=== PATIENT | female | born 2000 | race African-American/Black ===

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

== ENCOUNTER 2020-04-12 14:47 | Emergency (ER) | payer SELFPAY ==
--- NOTE | 2020-04-12 15:33 | ER Document Report ---
ED General - General Chief Complaint: Other Stated Complaint: LOSS OF TASTE/SMELL Time Seen by Provider: 04/12/20 15:24 Primary Care Provider: RHIANNON DENSON MD [Primary Care Provider] - Follow up as needed Notes: Patient is a 20-year-old -French female with no significant past medical history presents emergency department with a chief complaint of needing COVID testing. 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 She states to have mandatory monthly testing. She reports no known exposures or any positives at work however she reports earlier this week on Thursday she had some slight sniffles that have since passed. She states since that time she is gradually developed a loss of taste and smell. She was concerned knowing the symptoms of COVID-19 and her potential exposure so she came for evaluation. States that she is currently otherwise asymptomatic. TRAVEL OUTSIDE OF THE [place] IN LAST 30 DAYS: No - Related Data Allergies/Adverse Reactions: No Known Allergies Allergy (Verified 07/10/19 08:47) Past Medical History - Social History Smoking Status: Unknown if Ever Smoked Family History: Reviewed & Not Pertinent, Arthritis, CAD, CVA, DM, Hyperlipidemia, Hypertension Neurological Medical History: Reports: Hx Migraine Renal/ Medical History: Reports: Hx Peritoneal Dialysis Skin Medical History: Reports Hx Cellulitis - abscess - Immunizations Immunizations up to date: Yes Hx Diphtheria, Pertussis, Tetanus Vaccination: Yes Review of Systems - Review of Systems Constitutional: No symptoms reported EENT: Nose discharge Cardiovascular: No symptoms reported Respiratory: No symptoms reported Gastrointestinal: No symptoms reported Genitourinary: No symptoms reported Female Genitourinary: No symptoms reported Musculoskeletal: No symptoms reported Skin: No symptoms reported Hematologic/Lymphatic: No symptoms reported Neurological/Psychological: No symptoms reported Physical Exam - General General appearance: Appears well, Alert In distress: None - HEENT Head: Normocephalic, Atraumatic Eyes: Normal Extraocular movements intact: Yes Eyelashes: Normal Pupils: PERRL Ears: Normal External canal: Normal Tympanic membrane: Normal Sinus: Normal Nasal: Normal Mouth/Lips: Normal Mucous membranes: Normal Pharynx: Normal Neck: Normal, Supple - Respiratory Respiratory status: No respiratory distress Chest status: Nontender Breath sounds: Normal Chest palpation: Normal - Cardiovascular Rhythm: Regular Heart sounds: Normal auscultation - Neurological Neuro grossly intact: Yes Cognition: Normal Orientation: AAOx4 - Psychological Associated symptoms: Normal affect, Normal mood - Skin Skin Temperature: Warm Skin Moisture: Dry Skin Color: Normal Course - Re-evaluation Re-evalutation: 04/12/20 15:31 04/12/20 15:42 Patient currently asymptomatic with the exception of loss of taste and smell. She will be COVID swabbed. She will be deemed a patient under investigation and will self quarantine in her home until she receives a negative result or until further instructions are given by healthcare professional if a positive result is found. Discussed with her the importance of close and timely outpatient follow-up and advised that she return here or any ER immediately with any new, persistent or worsening symptoms. She verbalized understood and agreed. COVID swab pending. 04/12/20 18:03 I spoke with the charge nurse regarding the patient and her need for COVID testing and vitals prior to discharge. The patient was in our COVID awaiting section waiting for room in the main emergency department and was seen by myself in a side provider in triage room. I notified staff that the patient would require nursing assessment as well as vital signs that had not yet been captured as well as the COVID swab and the patient would be appropriate for discharge. Once the nurses were able to go to the waiting area to obtain the patient for vitals and swab testing. They report the patient cannot be found. It is assumed that she left after evaluation at this point would be deemed AGAINST MEDICAL ADVICE. No one was made aware of her departure therefore we were unable to discuss with her the risks of this decision. I did talk to her prior regarding her status as a patient under investigation precautions that would be necessary. Discharge - Discharge Clinical Impression: Person under investigation for COVID-19 Disposition: AGAINST MEDICAL ADVICE Instructions: COVID-19 Guidance for Persons Under Investigation Additional Instructions: Patient was provided with discharge information including: As a person under investigation for Covid 19, the [place] department of Health and Human Services, division of public health advises you to adhere to the following guidance until your test results are reported to you. If your test result is positive, you will receive additional information from your provider and your local health department at that time. Remain at home until you are cleared by the health provider or public health authorities. Keep a log of visitors to your home, notify any visitors to your home of your isolation status. If you plan to move to a new address or leave the county, notify the local health department in your County. Call your doctor or seek care if you have an urgent medical need. Before seeking medical care, call ahead to get instructions from the provider before arriving at the medical office clinic or hospital. Notify them that you are being tested for the virus that causes Covid 19 so that arrangements can be made, as necessary, to prevent transmission to others in the healthcare setting. Next, notify the local health department in your county. If a medical emergency arises and you need to call 911, inform the first responders that you are being tested for the virus that causes Covid 19. Next, notify the local health department in your county. Referrals: RHIANNON DENSON MD [Primary Care Provider] - Follow up as needed
== END 2020-04-12 18:00 | disposition left against medical advice (07) ==
LOC: ER 14:47
DX: R43.8 Other disturbances of smell and taste (principal); Z20.828 Contact with and (suspected) exposure to other viral communicable diseases
CPT/HCPCS: 99283